=== PATIENT | female | born 1935 | race Caucasian/White ===

== ENCOUNTER 2022-11-12 12:50 | Outpatient (AMB) | payer MEDICARE, SELFPAY ==
--- NOTE | 2022-11-12 12:55 | MHC.OFFVIS ---
Intake Vital Signs 11/12/22 12:57 Height 5 ft 3 in Weight 138 lb BMI 24.4 BP 138/90 H Blood Pressure Location Rt brachial Position Sitting Pulse 66 Pulse Source Pulse Oximeter Pulse Oximetry (%) 92 Oxygen Delivery Method Room Air Intake Visit Reasons: ENP-Prog Memory loss-CONFIRMED Intake Note: Pt presents today for progressive memory loss, seen by Arun who states he had dementia . Allergies Sulfa (Sulfonamide Antibiotics) Allergy (Mild, Verified 11/12/22 13:01) Unknown penicillin V Adverse Reaction (Intermediate, Verified 11/12/22 13:01) Unknown Medication List - Last Reconciled 11/12/22 by Abida Blue MD ascorbate calcium (vitamin C) 500 mg PO DAILY atorvastatin 20 mg PO DAILY celecoxib (Celebrex) 200 mg PO DAILY hydroxyzine HCl 10 mg PO BEDTIME methenamine hippurate 1 g PO BID pyridostigmine bromide 60 mg PO TID sertraline 50 mg PO DAILY tramadol 50 mg PO DAILY trazodone 25 mg PO DAILY HPI HPI Comments History of Present Illness Details 87y/o female comes for evaluation of memory issues. She was recently diagnosed with Myasthenia few weeks ago and is on pyridostigmine managed by Dr. Nunez. SHe is accompanied by her daughters who help with history.Her family had noticed short term memory issues few yeras ago and is progressing. she lives with her daughter. she has trouble with names, schmidt snot remember her daughters name , misplaces things, forgets conversations, has trouble with personal hygiene etc.Her daughter takes care of her medications and food. she gets upset easily now. SHe denies hallucinations. she has trouble sleeping because of anxiety.she is midly depressed. 2 months ago she had kandice ptosis and slurred speech- stroke was ruled out and was diagnosed with myasthenia. [facility] Medical History (Updated 11/12/22 @ 14:00 by Abida Blue MD) Myasthenia Mild cognitive impairment Rheumatic fever Anxiety Gait disorder Osteoporosis Kidney disease Hyperlipidemia Depression Arthritis Surgical History (Updated 11/12/22 @ 13:02 by Radha Pham) History of knee replacement procedure of left knee Family History (Updated 11/12/22 @ 13:08 by Radha Pham) Mother Heart attack Sister Cognitive change Father Dementia Social History (Updated 11/12/22 @ 13:03 by Radha Pham) Household Members: Family Alcohol intake: never Patient Tobacco Use Status: Never used Tobacco Review of Systems Const Reports fatigue and Reports frequent falls Eyes Reports blurry vision and Reports diplopia Neuro Reports frequent falls and Reports memory loss Psych Reports anxiety, Reports depression and Reports memory loss Endo Reports fatigue Physical Exam Vital Signs: Last Vital Signs Pulse 66 11/12/22 12:57 BP 138/90 H 11/12/22 12:57 Pulse Ox 92 11/12/22 12:57 Oxygen Delivery Method Room Air 11/12/22 12:57 BMI result Body Mass Index 24.4 Const General: cooperative, healthy appearing and comfortable Nutritional Appearance: well nourished Orientation/consciousness: oriented to person and oriented to place Eyes Pupils: Equal, round and reactive pupils present Neuro Other: mild ptosis, mild decreased upgaze General: oriented to person, oriented to place, tone normal, moves all extremities, no focal motor deficits and Unable to assess gait Cranial nerves: Yes Facial sensation intact/muscles of mastication intact, Yes Equal, round and reactive pupils present, Yes Bilaterally intact EOM present, Yes Nystagmus not present, Yes Normal facial strength present, Yes Midline tongue present, Yes Symmetric palate elevation present and Yes Ability to bilaterally elevate shoulders present Cognition (Neuro): normal cognition Gait exam (Neuro): Unable to assess gait Motor exam (neuro): 5/5 motor strength present throughout Deep tendon reflexes (DTR's): Right triceps reflex intensity grade: 1+, Left triceps reflex intensity grade: 1+, Rt Biceps (C5, C6): 1+, Left biceps reflex intensity grade: 1+, Right brachioradialis reflex intensity grade: 1+, Left brachioradialis reflex intensity grade: 1+, Right patellar reflex intensity grade: 1+ and Left patellar reflex intensity grade: 1+ Coordination: [id number] test normal Orientation What is the (year) (season) (date) (day) (month)?: year, season and day Where are we (state) (county) (town or city) (hospital) (floor)?: town or city, hospital/clinic and floor Registration Name of 3 unrelated objects clearly and slowly, then ask patient to repeat all 3 of them. (1st repeat determines score. Make sure they can repeat all three): object 1, object 2 and object 3 Attention & Calculation (CHOOSE ONE) Spell WORLD backwards (DLROW): 5 letters Recall Ask patient to repeat the 3 items from question #3.: object 1 and object 3 Language Show patient a wristwatch & ask what it is. Repeat for pencil.: watch and pencil Ask the patient to repeat the phrase 'No ifs, ands, or buts' after you.: correct Ask the patient to 'take a piece of paper with their right hand' 'fold paper in half' 'place paper on floor': take paper in right hand, fold paper in half and place paper on floor Print the sentence 'CLOSE YOUR EYES' on a piece. If patient actually closes eyes then score.: followed written direction Give patient a blank piece of paper & ask to write a sentence. Score if it contains a noun & verb.: sentence contains subject and verb Ask patient to copy figure of intersecting pentagons exactly. Score if all 10 angles & 2 intersects are included.: all 10 angles present & 2 are intersected Score Score: 25 Assessment & Plan Assessment & Plan (1) Mild cognitive impairment: Comment: she did well on MMSE. Cognitive impairment likely multifactorial - mood disorder, social isolation etc Code(s): G31.84 - Mild cognitive impairment of uncertain or unknown etiology (2) Myasthenia: Code(s): G70.00 - Myasthenia gravis without (acute) exacerbation Plan MRI and labs from PCP for review- TSH was normal, not sure if Vit B 12 was checked Suggested increasing social activity and cognitive activities. F/u Dr. Nunez for Myasthenia Coding Level of Care Code New Pt Level 4 ([id number]) Diagnoses Mild cognitive impairment G31.84 Myasthenia G70.00
[2022-11-12 12:57] VITALS: BP 138/90; PULSE 66; O2SAT 92; BMI 24.4
== END 2022-11-12 13:39 | disposition home or self-care (01) ==
PROVIDERS: Visit Provider Psychiatry & Neurology Neurology
DX: G31.84 Mild cognitive impairment of uncertain or unknown etiology (principal); G70.00 Myasthenia gravis without (acute) exacerbation
CPT/HCPCS: 99204

== ENCOUNTER → 2022-11-12 12:50 | Outpatient (BNVA) | payer MEDICARE, SELFPAY | PROVIDERS: Visit Provider Psychiatry & Neurology Neurology ==